=== PATIENT | female | born 1960 | race Two or more races ===

== ENCOUNTER 2024-02-28 08:46 | Emergency (ER) | payer OTHER ==
[~2024-02-28] VITALS: Ht 172.7 cm; Wt 63.5 kg
[2024-02-28] MEDS ORDERED: DILANTIN100 MG PO (08:56)
[2024-02-28] MEDS ORDERED: LEVOTHYROXINE25 MCG PO (08:56)
[2024-02-28] MEDS ORDERED: KETOROLAC TROMETHAMINE 30 MG VIAL IM STA (10:55)
== END 2024-02-28 13:30 | disposition home or self-care (01) ==
LOC: ER 08:48
DX: M54.50 Low back pain, unspecified (principal); Z88.0 Allergy status to penicillin